=== PATIENT | male | born 2000 | race African-American/Black ===

== ENCOUNTER 2020-02-15 22:29 | Observation (INO) | payer OTHER, SELFPAY ==
--- NOTE | ~2020-02-15 | CT_ITS ---
EXAMINATION: CT abdomen pelvis w con EXAM DATE: 02/16/2020 00:10 INDICATION: Right quadrant, right lower quadrant pain, symptoms one day. Nausea. TECHNIQUE: Spiral CT of the abdomen and pelvis was performed following intravenous injection of 100 m L Omnipaque 350. Axial, coronal and sagittal images were reviewed. The dose-length product (DLP) fo r this examination was 174.20 mGy-cm. The exposure was tailored according to patient size (auto mA e xposure control), and iterative reconstruction (ASIR) was used as additional dose reduction technique . There is no prior study for comparison. FINDINGS: The liver, spleen, adrenal glands and pancreas are unremarkable. Gallbladder is unremarkab le. No biliary obstruction. Portal and splenic veins are patent. Kidneys enhance symmetrically. T here is no hydronephrosis. The prostate is unremarkable. The bladder is unremarkable. There is no retroperitoneal or pelvic lymphadenopathy. There is paucity of intra-abdominal fat decreasing sensitivity for the for acute intra-abdominal proc esses. The appendix is not identified.. The stomach and small bowel are unremarkable. There is expe cted amount of colonic stool. No free intraperitoneal gas. The heart is normal in size. There ar e no pericardial or pleural effusions. The lung bases are unremarkable. The bones are unremarkable. IMPRESSION: 1. No acute intra-abdominal findings. Reviewed, dictated and finalized at location A.
[2020-02-15 22:34] VITALS: BP 118/92; PULSE 57; RESP 18; TEMP 36.3; O2SAT 100
[2020-02-15 22:56] LABS: Basophils Absolute Auto 0.1 K/mm3 (0.0-0.1); Basophils Percent Auto 0.3 % (0.2-1.2); Eosinophils Percent Auto 0.1 % (0-4.4); Hemoglobin 15.1 g/dL (14.0-18.0); Immature Granulocyte Absolute 0.06 K/mm3 (0.00-0.031); Immature Granulocyte Percent A 0.4 % (0-0.5); Lymphocytes Absolute Auto 1.21 K/mm3 (0.9-3.2); Lymphocytes Percent Auto 7.6 % (18.3-44.2); Mean Corpuscular HGB Conc 34.3 g/dl (32-36); Mean Corpuscular Hemoglobin 28.2 pg (26-34); Mean Corpuscular Volume 82.2 fl (80-100); Mean Platelet Volume 11.6 fl (7.4-10.4); Monocytes Absolute Auto 0.6 K/mm3 (0.1-0.6); Neutrophils Absolute Auto 13.9 K/mm3 (1.3-6.7); Neutrophils Percent Auto 87.6 % (45.5-73.1); Platelet Count Result 203 k/mm3 (150-375); Red Blood Count 5.35 M/mm3 (4.6-6.20); Red Cell Distribution Width 12.4 % (11.5-14.5); White Blood Count 15.9 K/mm3 (4.5-10.0)
--- NOTE | 2020-02-15 22:58 | ED.ABDPAIN ---
HPI - Abdominal Pain General Chief Complaint: Abdominal Pain Stated Complaint: n/v, RUQ pain Time Seen by Provider: 02/15/20 22:44 Source: patient Mode of arrival: ambulatory Limitations: no limitations History of Present Illness HPI narrative: This patient is a 19 year old male who presents for evaluation of epigastric abdominal pain , nausea and vomiting. He states he noticed throbbing pain on Wednesday, and his pain resolved. His pain returned today and he has been having multiple episode of nausea and vomiting. His symptoms started 2 hours after eating at [address] and drinking alcohol. He states he only drank 1 glass of alcohol tonight. He denies fever but has chills. He denies diarrhea, cough or sob. MD elicited complaint: abdominal pain Related Data Home Medications Medication Instructions Recorded Confirmed No Home Medications 02/15/20 02/15/20 Allergies Allergy/AdvReac Type Severity Reaction Status Date / Time No Known Allergies Allergy Verified 02/15/20 22:37 Review of Systems Review of Systems: All systems reviewed & are unremarkable except as noted in HPI and below Constitutional: Constitutional: Reports chills and Denies fever(s) ENT: Denies sore throat Cardiovascular: Cardiovascular: Denies chest pain Respiratory: Respiratory: Denies cough and Denies dyspnea Gastrointestinal: Gastrointestinal: Reports abdominal pain, Denies diarrhea, Reports nausea and Reports vomiting PMFSH Past Medical History Medical History (Updated 02/16/20 @ 03:54 by Vanesa Land MD) Patient denies medical problems Surgical History Surgical History (Updated 02/15/20 @ 23:01 by Vanesa Land MD) No significant past surgical history Social History Social History (Updated 02/15/20 @ 23:01 by Vanesa Land MD) Smoking status: Never smoker Alcohol intake: current Alcohol use details: occasional alcohol use Substance use type: marijuana Exam Const: General: alert and ill appearing Nutritional Appearance: thin Orientation/consciousness: patient oriented x3 HENMT: Head: normocephalic and atraumatic Mouth: Yes lip normal Throat: posterior oropharynx normal, tonsils normal and uvula midline Eyes: Pupils: Equal, round and reactive pupils present EOM: EOMs intact bilaterally Neck: Neck: no lymphadenopathy Resp: Effort & Inspection: normal respiratory effort Auscultation: clear to auscultation bilaterally Cardio: Rate: regular rate Rhythm: regular rhythm Heart sounds: no murmurs GI: GI Palp: Yes Soft to palpation, Yes Tenderness to palpation present (GI) (epigastric), No Guarding due to palpation present (GI) and No Rigid due to palpation Skin: General skin exam: normal color Rashes: no rashes Neuro: General: patient oriented x3 and moves all extremities Course Reevaluation(s) Reevaluation #1: Patient is still having nausea and pain. On reexamination, Patient has diffuse tenderness. no guarding. He has some leukocytosis with this continued pain and nausea so will obs Date: 02/16/20 Time: 03:00 Consultations Consultation #1: I have discussed case with DR. Meier who accepts to medical floor for observation. Date: 02/16/20 Time: 03:30 Vital Signs Vital signs: Vital Signs Temperature 97.3 F L 02/15/20 22:34 Pulse Rate 57 L 02/15/20 22:34 Respiratory Rate 18 02/15/20 22:34 Blood Pressure 118/92 H 02/15/20 22:34 Pulse Oximetry 100 02/15/20 22:34 Temperature 97.3 F L 02/15/20 22:34 Pulse Rate 60 02/16/20 03:36 Respiratory Rate 18 02/16/20 03:36 Blood Pressure 103/74 02/16/20 03:36 Pulse Oximetry 96 02/16/20 03:36 MDM - Abdominal Pain Lab Data Attestation: I reviewed the patient's lab results. Result diagrams: 02/15/20 22:48 02/15/20 22:48 Labs: Lab Results 02/15/20 02/15/20 02/15/20 Range/Units 22:48 22:48 23:41 WBC 15.9 H (4.5-10.0) K/mm3 RBC 5.35 (4.6-
[2020-02-15 23:09] LABS: Alanine Aminotransferase 17 U/L (4-50); Alkaline Phosphatase 74 U/L (38-126); Anion Gap 17.3 mmol/L (7-16); Aspartate Amino Transferase 32 U/L (17-59); Bilirubin,Total 0.6 mg/dL (0.2-1.3); Blood Urea Nitrogen 10 mg/dL (9-20); Calcium 9.7 mg/dL (8.4-10.2); Carbon Dioxide 21 mmol/L (22-30); Chloride 103 mmol/L (98-107); Estimated CRCL calculation 78 ml/min; Estimated Glomerular Filt Rate > 60; Glucose 147 mg/dL (75-110); Lipase 109 U/L (23-300); Potassium 3.3 mmol/L (3.4-5.0); Sodium 138 mmol/L (137-145)
[2020-02-15] MEDS: PANTOPRAZOLE SODIUM IV 40 MG VIAL IV PUSH (23:28)
[2020-02-15] MEDS: ONDANSETRON INJ 4 MG/2 ML VIAL IV PUSH (23:28)
[2020-02-15] MEDS: LACTATED RINGERS 1,000 ML 999 ML IV CONT (23:38)
[2020-02-15 23:48] VITALS: BP 99/88; PULSE 64; RESP 16; O2SAT 99
[2020-02-16 00:04] LABS: Add Urine Microscopic? YES; Appearance Urine Clear (Clear); Bilirubin Urine Negative (Negative); Blood Urine Negative (Negative); Color Urine Yellow (Yellow); Glucose Urine UA Negative (Negative); Ketones Urine 1+ mg/dL (Negative); Leukocyte Esterase Ur Negative LEU/UL (Negative); Mucus Urine Rare /lpf; Nitrate Urine Negative (Negative); Protein Urine 2+ mg/dL (Negative); RBC Urine 0-2 /hpf (0-2); Specific Grav Ur 1.025 (1.001-1.035); Urobilinogen Urine Negative mg/dL (<2.0)
[2020-02-16 00:23] VITALS: BP 97/74; PULSE 70; RESP 16; O2SAT 100
[2020-02-16] MEDS: ONDANSETRON INJ 4 MG/2 ML VIAL IV PUSH ×2 (01:22→22:54)
[2020-02-16] MEDS: KETOROLAC 30 MG/ML VIAL (*BKC) IV PUSH (01:22)
[2020-02-16] MEDS: MORPHINE SULFATE 4 MG/ML INJ IV PUSH (02:07)
[2020-02-16 02:27] VITALS: BP 120/61; PULSE 69; RESP 18; O2SAT 100
[2020-02-16] MEDS: PROMETHAZINE HCL 25 MG/ML AMPUL 12.5 MG IV PUSH (03:25)
[2020-02-16] MEDS: SODIUM CHLORIDE 0.9% IV 50 ML (03:31)
[2020-02-16] MEDS: DICYCLOMINE HCL INJ 20 MG/2 ML VIAL IM (03:32)
[2020-02-16 03:36] VITALS: BP 103/74; PULSE 60; RESP 18; O2SAT 96
[2020-02-16 03:43] LABS: Amphetamine Screen Urine Negative (Negative); Barbiturate Screen Urine Negative (Negative); Benzodiazepines Screen Urine Negative (Negative); Cannabinoid Screen Urine Positive (Negative); Cocaine Screen Urine Negative (Negative); Methadone Screen Urine Negative (Negative); Opiate Screen Urine Negative (Negative); Phencyclidine Screen Urine Negative (Negative)
--- NOTE | 2020-02-16 04:06 | PC.NURSE ---
report to darci
--- NOTE | 2020-02-16 04:20 | ADMGEN ---
This patient, Arpan Baldwin Jr., was admitted to Medical Room 349-01. Patient/family oriented to hospital policies and general routines including ID bracelet, bed and alarms, visiting hours, pain management, procedures, bathroom and other care routines, personal items, smoking policy, room service/diet, and visiting hours. Valuables list has been completed. Information on how to activate the Rapid Response Team has been discussed. Patient/Family are encouraged to report perceived risks to care and to ask questions if they do not understand what they are told or what they should do.
[2020-02-16] MEDS: SODIUM CHLORIDE 0.9% IV 1,000 ML 125 ML IV CONT ×3 (04:27→22:54)
[2020-02-16 04:30] VITALS: BP 114/79; PULSE 59; RESP 16; TEMP 37.1; O2SAT 100; BMI 16.9
--- NOTE | 2020-02-16 06:11 | PC.NURSE ---
pulled out the 1G/100mls only gave patient 65mls to equal the order of 650mg. the 650 mg bag was returned to pharmacy
[2020-02-16] MEDS: FAMOTIDINE 20 MG/2 ML VIAL IV PUSH ×2 (09:12→20:39)
[2020-02-16 09:15] LABS: Basophils Percent Auto 0.1 % (0.2-1.2); Hematocrit 42.9 % (42.0-52.0); Hemoglobin 14.4 g/dL (14.0-18.0); Immature Granulocyte Absolute 0.03 K/mm3 (0.00-0.031); Immature Granulocyte Percent A 0.3 % (0-0.5); Immature Platelet Fraction Pct 13.5 % (0.9-11.2); Lymphocytes Absolute Auto 0.65 K/mm3 (0.9-3.2); Lymphocytes Percent Auto 5.9 % (18.3-44.2); Mean Corpuscular HGB Conc 33.6 g/dl (32-36); Mean Corpuscular Hemoglobin 28.5 pg (26-34); Monocytes Absolute Auto 0.3 K/mm3 (0.1-0.6); Neutrophils Percent Auto 90.7 % (45.5-73.1); Red Blood Count 5.05 M/mm3 (4.6-6.20); Red Cell Distribution Width 12.6 % (11.5-14.5)
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
[2020-02-16 09:27] LABS: Alanine Aminotransferase 15 U/L (4-50); Albumin Level 4.7 g/dL (3.5-5.1); Alkaline Phosphatase 58 U/L (38-126); Anion Gap 13.3 mmol/L (7-16); Aspartate Amino Transferase 35 U/L (17-59); Bilirubin,Total 0.6 mg/dL (0.2-1.3); Blood Urea Nitrogen 10 mg/dL (9-20); Calcium 9.1 mg/dL (8.4-10.2); Carbon Dioxide 22 mmol/L (22-30); Chloride 105 mmol/L (98-107); Estimated CRCL calculation 84 ml/min; Estimated Glomerular Filt Rate > 60; Glucose 108 mg/dL (75-110); Potassium 4.3 mmol/L (3.4-5.0); Sodium 136 mmol/L (137-145)
[2020-02-16 09:46] LABS: Platelet Clumps Present
[2020-02-16 14:00] VITALS: BP 117/66; PULSE 88; RESP 16; TEMP 36.8; O2SAT 100
[2020-02-16 16:46] VITALS: BMI 16.9
[2020-02-16 21:37] VITALS: BP 100/82; PULSE 59; RESP 16; TEMP 36.8; O2SAT 98
[2020-02-17 06:00] VITALS: BP 130/82; PULSE 64; RESP 16; TEMP 37.2; O2SAT 100
[2020-02-17 06:16] LABS: Basophils Percent Auto 0.1 % (0.2-1.2); Eosinophils Percent Auto 0.1 % (0-4.4); Hemoglobin 13.7 g/dL (14.0-18.0); Immature Granulocyte Absolute 0.06 K/mm3 (0.00-0.031); Immature Granulocyte Percent A 0.5 % (0-0.5); Lymphocytes Absolute Auto 1.32 K/mm3 (0.9-3.2); Lymphocytes Percent Auto 10.6 % (18.3-44.2); Mean Corpuscular HGB Conc 33.4 g/dl (32-36); Mean Corpuscular Hemoglobin 27.9 pg (26-34); Mean Corpuscular Volume 83.5 fl (80-100); Mean Platelet Volume 11.6 fl (7.4-10.4); Monocytes Absolute Auto 0.7 K/mm3 (0.1-0.6); Monocytes Percent Auto 5.5 % (2.6-8.5); Neutrophils Absolute Auto 10.3 K/mm3 (1.3-6.7); Neutrophils Percent Auto 83.2 % (45.5-73.1); Platelet Count Result 160 k/mm3 (150-375); Red Blood Count 4.91 M/mm3 (4.6-6.20); Red Cell Distribution Width 12.6 % (11.5-14.5); White Blood Count 12.4 K/mm3 (4.5-10.0)
[2020-02-17] MEDS: ONDANSETRON INJ 4 MG/2 ML VIAL IV PUSH ×2 (06:28→11:35)
[2020-02-17] MEDS: SODIUM CHLORIDE 0.9% IV 1,000 ML 125 ML IV CONT ×2 (06:30→15:07)
[2020-02-17 06:31] LABS: Alanine Aminotransferase 15 U/L (4-50); Albumin Level 4.1 g/dL (3.5-5.1); Alkaline Phosphatase 54 U/L (38-126); Anion Gap 12.1 mmol/L (7-16); Aspartate Amino Transferase 35 U/L (17-59); Bilirubin,Total 0.6 mg/dL (0.2-1.3); Blood Urea Nitrogen 10 mg/dL (9-20); Calcium 8.8 mg/dL (8.4-10.2); Carbon Dioxide 22 mmol/L (22-30); Chloride 106 mmol/L (98-107); Estimated CRCL calculation 94 ml/min; Estimated Glomerular Filt Rate > 60; Glucose 96 mg/dL (75-110); Potassium 4.1 mmol/L (3.4-5.0); Sodium 136 mmol/L (137-145)
[2020-02-17] MEDS: MORPHINE SULFATE 4 MG/ML INJ IV PUSH (07:14)
[2020-02-17 08:00] VITALS: PULSE 64; RESP 16; O2SAT 100
[2020-02-17] MEDS: FAMOTIDINE 20 MG/2 ML VIAL IV PUSH ×2 (08:44→20:33)
--- NOTE | 2020-02-17 10:54 | WPDGICN ---
Assessment and Plan Assessment and plan (1) Intractable nausea and vomiting: Code(s): R11.2 - Nausea with vomiting, unspecified Status: Acute Assessment and Plan: Patient has had several days of significant nausea vomiting. The etiology is unclear. May be related not having a bowel movement for several days. Possibly related to marijuana use. Plan is for IV fluid rehydration if symptoms persist an EGD on Wednesday will be arranged. We will follow with you. (2) Acute generalized abdominal pain: Code(s): R10.84 - Generalized abdominal pain Status: Acute (3) Constipation: Code(s): K59.00 - Constipation, unspecified Status: Acute Assessment and Plan: Patient reports no bowel movement for 3 days. Will plan to give the patient a suppository to assist with bowel movements given his significant nausea vomiting oral laxatives may not be tolerated. GI Consult Note Consult date/time: 02/17/20 10:54 HPI: Arpan Baldwin Jr. is a 19 year old male Seen in evaluation at the request Dr. Donaldson on the hospitalist service Patient in usual state of health over the last 3 days he notes nausea. He vomited yesterday. He has had rather diffuse abdominal pain and cramping. He knows during the last 3 days he has not had a bowel movement. Patient reports no recent travel. He apparently ate at a restaurant had an alcoholic beverage 2 nights ago. Maninder does not drink heavily. He does admit to daily marijuana use. He has not had prior episodes of nausea and vomiting. Family history is noncontributory. He takes no medications. Review of Systems Review of Systems: All systems reviewed & are unremarkable except as noted in HPI and below PMFSH Past Medical History Medical History Patient denies medical problems Surgical History Surgical History No significant past surgical history Family History Family History Father Diabetes mellitus Hypertension Mother No problems noted. 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 Smoking status: Never smoker Alcohol intake: current Drinks per week: 2 Alcohol use details: occasional alcohol use Substance use: current Substance use type: marijuana Last use: 02/15/20 Gender identity (if verbalized by the patient): Male Sexual Orientation (if Verbalized by the Patient): Straight or Heterosexual Spiritual care concerns: No Meds Home Medications and Allergies Home Medications Medication Instructions Recorded Confirmed Type No Home Medications 02/15/20 02/15/20 History Allergies Allergy/AdvReac Type Severity Reaction Status Date / Time No Known Allergies Allergy Verified 02/15/20 22:37 Vital Signs Vital Signs - 24 hr 02/16/20 14:00 02/16/20 21:37 02/17/20 06:00 Temperature 98.2 F 98.2 F 98.9 F Pulse Rate 88 59 L 64 Respiratory Rate 16 16 16 Blood Pressure 117/66 100/82 130/82 Pulse Oximetry 100 98 100 02/17/20 08:00 Temperature Pulse Rate 64 Respiratory Rate 16 Blood Pressure Pulse Oximetry 100 Exam Narrative: Exam Narrative: Physical exam reveals the patient to be alert. Vital signs are stable. HEENT exam is unremarkable he is anicteric. Lungs are clear to auscultation and percussion. Heart is without murmur or extra sounds. Abdominal exam is flat scaphoid bowel sounds are present soft nontender with no organomegaly. Digital rectal exam is deferred at this time. Results Labs CBC & Chem 7: 02/17/20 06:05 02/17/20 06:05 Labs: Short CBC 02/17/20 Range/Units 06:05 WBC 12.4 H (4.5-10.0) K/mm3 Hgb 13.7 L (14.0-18.0) g/dL Hct 41.0 L (42.0-52.0) %
[2020-02-17] MEDS: BISACODYL 10 MG SUPPOSITORY RECTAL (11:24)
[2020-02-17 14:00] VITALS: BP 118/60; PULSE 51; RESP 18; TEMP 37.3; O2SAT 100
--- NOTE | 2020-02-17 14:21 | PM.IMPN ---
Progress Note: A&P Assessment and Plan (1) Acute generalized abdominal pain: Code(s): R10.84 - Generalized abdominal pain Status: Acute Assessment and Plan: no obvious localizing etiology with normal LFTs, lipase, and CT of the abdomen. Most likely a simple gastritis. Has been placed on proton pump inhibitors which will continue and hydrated. Will repeat his laboratory work remains normal with falling WBC. GI has seen and if symptoms persist will proceed to EGD (2) Leukocytosis: Code(s): D72.829 - Elevated white blood cell count, unspecified Status: Acute Assessment and Plan: suspect stress related or secondary to gastritis. . No other obvious source of infection and continue to monitor Subjective Date/time seen: 02/17/20 14:21 Interval history: date visit 02/16. 19-year-old present healthy male admitted with nausea vomiting abdominal pain. Pain is subsided but still feels nauseated. Really unable to eat. No bowel movement. LFTs all normal as was CT scan and WBC falling Exam Narrative: Exam Narrative: blood pressure 126/80 pulse is 90 and regular afebrile pupil equal reactive to light sclera anicteric mouth normal mucosa neck supple lungs clear CV regular rate rhythm no murmurs or gallops abdomen is soft bowel sounds present to slightly decrease diffuse mild tenderness but no rebound or guarding extremities without edema dorsalis pedis posterior tibial 2+ neuro alert no focal deficits cranial nerves 2-12 are intact psych pleasant cooperative Objective Data Vital Signs Vital Signs: Vital Signs - 24 hr 02/16/20 21:37 02/17/20 06:00 02/17/20 08:00 Temperature 36.8 C 37.2 C Pulse Rate 59 L 64 64 Respiratory Rate 16 16 16 Blood Pressure 100/82 130/82 Pulse Oximetry 98 100 100 Intake/Output Intake/Output: Intake & Output 02/14/20 02/15/20 02/16/20 02/17/20 23:59 23:59 23:59 23:59 Intake Total 3850 1150 Output Total 200 Balance 3850 950 Meds/Results Medications: Active Medications Generic Name Dose Route Start Last Admin Trade Name Freq PRN Reason Stop Dose Admin Famotidine 20 mg 02/16/20 09:00 02/17/20 08:44 Pepcid Iv IV PUSH 20 mg Q12HR ANASTACIA Administration Sodium Chloride 1,000 mls @ 125 mls/hr 02/16/20 03:40 02/17/20 06:30 Normal Saline Iv IV CONT 125 mls/hr .Q8H ANASTACIA Administration Ondansetron HCl 4 mg 02/16/20 03:38 02/17/20 11:35 Zofran Inj IV PUSH 4 mg Q4H PRN Administration Nausea Radiology Results: ITS Impressions Abdomen/Pelvis CT 02/16/20 08:11 IMPRESSION: 1. No acute intra-abdominal findings. Labs Labs: Laboratory Results - last 24 hr 02/17/20 02/17/20 06:05 06:05 WBC 12.4 H RBC 4.91 Hgb 13.7 L Hct 41.0 L MCV 83.5 MCH 27.9 MCHC 33.4 RDW 12.6 Plt Count 160 MPV 11.6 H Immature Gran % (Auto) 0.5 Neut % (Auto) 83.2 H Lymph % (Auto) 10.6 L [place] % (Auto) 5.5 Eos % (Auto) 0.1 Baso % (Auto) 0.1 L Lymph # (Auto) 1.32 Barton # (Auto) 0.7 H Eos # (Auto) 0.0 Baso # (Auto) 0.0 Abs Immat Gran (auto) 0.06 H Absolute Neuts (auto) 10.3 H Absolute Nucleated RBC 0.0 Nucleated RBC % 0.0 Sodium 136 L Potassium 4.1 Chloride 106 Carbon Dioxide 22 Anion Gap 12.1 BUN 10 Creatinine 0.80 Estim Creat Clear Calc 94 Estimated GFR > 60 Glucose 96 Calcium 8.8 Total Bilirubin 0.6 AST 35 ALT 15 Alkaline Phosphatase 54 Total Protein 7.0 Albumin 4.1
[2020-02-17 20:27] VITALS: BP 138/79; PULSE 51; RESP 16; TEMP 37.1; O2SAT 99
[2020-02-17] MEDS: KETOROLAC 15 MG/ML VIAL (*BKC) IV PUSH (21:20)
[2020-02-18] MEDS: SODIUM CHLORIDE 0.9% IV 1,000 ML 125 ML IV CONT ×2 (00:03→08:27)
[2020-02-18] MEDS: ONDANSETRON INJ 4 MG/2 ML VIAL IV PUSH (04:40)
[2020-02-18 05:40] LABS: Anion Gap 14.1 mmol/L (7-16); Blood Urea Nitrogen 14 mg/dL (9-20); Calcium 8.6 mg/dL (8.4-10.2); Carbon Dioxide 17 mmol/L (22-30); Chloride 107 mmol/L (98-107); Estimated CRCL calculation 84 ml/min; Estimated Glomerular Filt Rate > 60; Glucose 78 mg/dL (75-110); Potassium 4.1 mmol/L (3.4-5.0); Sodium 134 mmol/L (137-145)
[2020-02-18 06:00] VITALS: BP 142/85; PULSE 50; RESP 16; TEMP 36.7; O2SAT 100
[2020-02-18 07:41] LABS: Basophils Percent Auto 0.2 % (0.2-1.2); Eosinophils Percent Auto 0.2 % (0-4.4); Hematocrit 46.3 % (42.0-52.0); Hemoglobin 15.8 g/dL (14.0-18.0); Immature Granulocyte Absolute 0.03 K/mm3 (0.00-0.031); Immature Granulocyte Percent A 0.3 % (0-0.5); Lymphocytes Percent Auto 16.5 % (18.3-44.2); Mean Corpuscular HGB Conc 34.1 g/dl (32-36); Mean Corpuscular Hemoglobin 28.1 pg (26-34); Mean Corpuscular Volume 82.4 fl (80-100); Mean Platelet Volume 11.4 fl (7.4-10.4); Monocytes Absolute Auto 0.5 K/mm3 (0.1-0.6); Monocytes Percent Auto 5.7 % (2.6-8.5); Neutrophils Percent Auto 77.1 % (45.5-73.1); Platelet Count Result 158 k/mm3 (150-375); Red Blood Count 5.62 M/mm3 (4.6-6.20); Red Cell Distribution Width 12.3 % (11.5-14.5); White Blood Count 9.1 K/mm3 (4.5-10.0)
[2020-02-18] MEDS: FAMOTIDINE 20 MG/2 ML VIAL IV PUSH ×2 (08:27→19:59)
--- NOTE | 2020-02-18 08:36 | P.PNGI_ITS ---
Progress Note: A&P Additional Plan Patient alert this morning. He reports continued emesis despite being NPO. He also states he is hungry. He reports sensation of difficulty swallowing even though he has been NPO. Physical exam reveals patient to be extremely thin. Lungs are clear. Heart without murmur. Abdomen is soft and nontender. No organomegaly. No distention. Impression 1. Protracted nausea and vomiting. Plan is to continue PPI intravenously. An EGD will be planned in the morning. 2. New complaint of difficulty swallowing. Likely secondary to anxiety. Will assess this at the time of endoscopy. Subjective Date/time seen: 02/18/20 08:36 Objective Data Vital Signs Vital Signs: Vital Signs - 24 hr 02/17/20 14:00 02/17/20 20:27 02/18/20 06:00 Temperature 99.2 F 98.8 F 98.0 F Pulse Rate 51 L 51 L 50 L Respiratory Rate 18 16 16 Blood Pressure 118/60 138/79 142/85 H Pulse Oximetry 100 99 100 Intake/Output Intake/Output: Intake & Output 02/15/20 02/16/20 02/17/20 02/18/20 23:59 23:59 23:59 23:59 Intake Total 3850 2454 1696 Output Total 350 975 Balance 3850 2104 721 Meds/Results Medications: Active Medications Generic Name Dose Route Start Last Admin Trade Name Freq PRN Reason Stop Dose Admin Famotidine 20 mg 02/16/20 09:00 02/18/20 08:27 Pepcid Iv IV PUSH 20 mg Q12HR ANASTACIA Administration Sodium Chloride 1,000 mls @ 125 mls/hr 02/16/20 03:40 02/18/20 08:27 Normal Saline Iv IV CONT 125 mls/hr .Q8H ANASTACIA Administration Ondansetron HCl 4 mg 02/16/20 03:38 02/18/20 04:40 Zofran Inj IV PUSH 4 mg Q4H PRN Administration Nausea Radiology Results: ITS Impressions Abdomen/Pelvis CT 02/16/20 08:11 IMPRESSION: 1. No acute intra-abdominal findings. Labs Labs: Laboratory Results - last 24 hr 02/18/20 02/18/20 05:06 07:23 WBC 9.1 RBC 5.62 Hgb 15.8 Hct 46.3 MCV 82.4 MCH 28.1 MCHC 34.1 RDW 12.3 Plt Count 158 MPV 11.4 H Immature Gran % (Auto) 0.3 Neut % (Auto) 77.1 H Lymph % (Auto) 16.5 L [place] % (Auto) 5.7 Eos % (Auto) 0.2 Baso % (Auto) 0.2 Lymph # (Auto) 1.50 [place] # (Auto) 0.5 Eos # (Auto) 0.0 Baso # (Auto) 0.0 Abs Immat Gran (auto) 0.03 Absolute Neuts (auto) 7.0 H Absolute Nucleated RBC 0.0 Nucleated RBC % 0.0 Sodium 134 L Potassium 4.1 Chloride 107 Carbon Dioxide 17 L Anion Gap 14.1 BUN 14 Creatinine 0.90 Estim Creat Clear Calc 84 Estimated GFR > 60 Glucose 78 Calcium 8.6
[2020-02-18 14:00] VITALS: BP 128/69; PULSE 53; RESP 16; TEMP 37.6; O2SAT 100
--- NOTE | 2020-02-18 14:46 | PC.NURSE ---
Ate 50% of lunch. Tolerated it with no problems noted.
--- NOTE | 2020-02-18 15:50 | PM.IMPN ---
Progress Note: A&P Assessment and Plan (1) Acute generalized abdominal pain: Code(s): R10.84 - Generalized abdominal pain Status: Acute Assessment and Plan: no obvious localizing etiology with normal LFTs, lipase, and CT of the abdomen. Most likely a simple gastritis. Has been placed on proton pump inhibitors which will continue and hydrated. WBC normal now. GI has seen and with symptoms slow to resolve will do EGD am 02/18 (2) Leukocytosis: Code(s): D72.829 - Elevated white blood cell count, unspecified Status: Acute Assessment and Plan: suspect stress related or secondary to gastritis. . No other obvious source of infection and normal today Subjective Date/time seen: 02/18/20 15:50 Interval history: date visit 02/17. 19-year-old present healthy male admitted with nausea vomiting abdominal pain. Pain is subsided but still feels slightly nauseated. Had bm and ready to try full liquid diet. LFTs all normal as was CT scan and WBC now normal Exam Narrative: Exam Narrative: blood pressure 128/70 pulse is 60 and regular afebrile pupil equal reactive to light sclera anicteric mouth normal mucosa neck supple lungs clear CV regular rate rhythm no murmurs or gallops abdomen is soft bowel sounds normoactive today extremities without edema dorsalis pedis posterior tibial 2+ neuro alert no focal deficits cranial nerves 2-12 are intact psych pleasant cooperative Objective Data Vital Signs Vital Signs: Vital Signs - 24 hr 02/17/20 20:27 02/18/20 06:00 02/18/20 14:00 Temperature 37.1 C 36.7 C 37.6 C Pulse Rate 51 L 50 L 53 L Respiratory Rate 16 16 16 Blood Pressure 138/79 142/85 H 128/69 Pulse Oximetry 99 100 100 Intake/Output Intake/Output: Intake & Output 02/15/20 02/16/20 02/17/20 02/18/20 23:59 23:59 23:59 23:59 Intake Total 3850 2454 1936 Output Total 350 975 Balance 3850 2104 961 Meds/Results Medications: Active Medications Generic Name Dose Route Start Last Admin Trade Name Freq PRN Reason Stop Dose Admin Famotidine 20 mg 02/16/20 09:00 02/18/20 08:27 Pepcid Iv IV PUSH 20 mg Q12HR ANASTACIA Administration Sodium Chloride 1,000 mls @ 100 mls/hr 02/16/20 03:40 02/18/20 08:27 Normal Saline Iv IV CONT 125 mls/hr .Q10H ANASTACIA Administration Ondansetron HCl 4 mg 02/16/20 03:38 02/18/20 04:40 Zofran Inj IV PUSH 4 mg Q4H PRN Administration Nausea Radiology Results: ITS Impressions Abdomen/Pelvis CT 02/16/20 08:11 IMPRESSION: 1. No acute intra-abdominal findings. Labs Labs: Laboratory Results - last 24 hr 02/18/20 02/18/20 05:06 07:23 WBC 9.1 RBC 5.62 Hgb 15.8 Hct 46.3 MCV 82.4 MCH 28.1 MCHC 34.1 RDW 12.3 Plt Count 158 MPV 11.4 H Immature Gran % (Auto) 0.3 Neut % (Auto) 77.1 H Lymph % (Auto) 16.5 L [place] % (Auto) 5.7 Eos % (Auto) 0.2 Baso % (Auto) 0.2 Lymph # (Auto) 1.50 [place] # (Auto) 0.5 Eos # (Auto) 0.0 Baso # (Auto) 0.0 Abs Immat Gran (auto) 0.03 Absolute Neuts (auto) 7.0 H Absolute Nucleated RBC 0.0 Nucleated RBC % 0.0 Sodium 134 L Potassium 4.1 Chloride 107 Carbon Dioxide 17 L Anion Gap 14.1 BUN 14 Creatinine 0.90 Estim Creat Clear Calc 84 Estimated GFR > 60 Glucose 78 Calcium 8.6
[2020-02-18] MEDS: SODIUM CHLORIDE 0.9% IV 1,000 ML 75 ML IV CONT (16:07)
[2020-02-18 21:59] VITALS: BP 127/60; PULSE 99; RESP 18; TEMP 37.2; O2SAT 100
[2020-02-19] MEDS: SODIUM CHLORIDE 0.9% IV 1,000 ML 75 ML IV CONT (05:07)
[2020-02-19 05:12] VITALS: BP 120/82; PULSE 50; RESP 14; TEMP 36.9; O2SAT 100
[2020-02-19 06:06] LABS: Blood Urea Nitrogen 14 mg/dL (9-20); Calcium 8.8 mg/dL (8.4-10.2); Carbon Dioxide 22 mmol/L (22-30); Chloride 106 mmol/L (98-107); Estimated CRCL calculation 84 ml/min; Estimated Glomerular Filt Rate > 60; Glucose 69 mg/dL (75-110); Sodium 135 mmol/L (137-145)
--- NOTE | 2020-02-19 07:33 | WPDANESEPPF ---
Anes - Initial Pre Proc Eval Procedure: Operation Date: 02/19/20 08:00 Proposed Procedures p Esophagogastroduodenoscopy - Marco Mann MD Date/Time: 02/19/20 07:33 Surgeon: Evert Hartley MD Pre Op Diagnosis: intractable abdominal pain, nausea and vomiting Patient Data Age: 19 Gender: M Height: 1.75 m Weight: 52.1 kg Last Vital Signs Temp 36.9 C 02/19/20 05:12 Pulse 50 L 02/19/20 05:12 Resp 14 02/19/20 05:12 BP 120/82 02/19/20 05:12 Pulse Ox 100 02/19/20 05:12 Allergies Allergy/AdvReac Type Severity Reaction Status Date / Time No Known Allergies Allergy Verified 02/15/20 22:37 Home Medications Medication Instructions Recorded Confirmed Type No Home Medications 02/15/20 02/15/20 History Laboratory Tests 02/18/20 02/19/20 07:23 05:19 WBC 9.1 K/mm3 K/mm3 (4.5-10.0) RBC 5.62 M/mm3 M/mm3 (4.6-6.20) Hgb 15.8 g/dL g/dL (14.0-18.0) Hct 46.3 % % (42.0-52.0) MCV 82.4 fl fl (80-100) MCH 28.1 pg pg (26-34) MCHC 34.1 g/dl g/dl (32-36) RDW 12.3 % % (11.5-14.5) Plt Count 158 k/mm3 k/mm3 (150-375) MPV 11.4 fl H fl (7.4-10.4) Immature Gran % (Auto) 0.3 % % (0-0.5) Neut % (Auto) 77.1 % H % (45.5-73.1) Lymph % (Auto) 16.5 % L % (18.3-44.2) Eddy % (Auto) 5.7 % % (2.6-8.5) Eos % (Auto) 0.2 % % (0-4.4) Baso % (Auto) 0.2 % % (0.2-1.2) Lymph # (Auto) 1.50 K/mm3 K/mm3 (0.9-3.2) Eddy # (Auto) 0.5 K/mm3 K/mm3 (0.1-0.6) Eos # (Auto) 0.0 K/mm3 K/mm3 (0-0.3) Baso # (Auto) 0.0 K/mm3 K/mm3 (0.0-0.1) Abs Immat Gran (auto) 0.03 K/mm3 K/mm3 (0.00-0.031) Absolute Neuts (auto) 7.0 K/mm3 H K/mm3 (1.3-6.7) Absolute Nucleated RBC 0.0 K/mm3 K/mm3 (0.0-0.012) Nucleated RBC % 0.0 % % (0.0-0.2) Sodium 135 mmol/L L mmol/L (137-145) Potassium 4.0 mmol/L mmol/L (3.4-5.0) Chloride 106 mmol/L mmol/L (98-107) Carbon Dioxide 22 mmol/L mmol/L (22-30) Anion Gap 11.0 mmol/L mmol/L (7-16) BUN 14 mg/dL mg/dL (9-20) Creatinine 0.90 mg/dL mg/dL (0.7-1.3) Estim Creat Clear Calc 84 ml/min ml/min Estimated GFR > 60 (59 - ) Glucose 69 mg/dL L mg/dL (75-110) Calcium 8.8 mg/dL mg/dL (8.4-10.2) Patient hx anesthesia problems: none Family hx anesthesia problems: none [facility] Past Medical History Medical History Patient denies medical problems Surgical History Surgical History No significant past surgical history Family History Family History Father Diabetes mellitus Hypertension Mother No problems noted. 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 Smoking status: Never smoker Alcohol intake: current Drinks per week: 2 Alcohol use details: occasional alcohol use Substance use: current Substance use type: marijuana Last use: 02/15/20 Gender identity (if verbalized by the patient): Male Sexual Orientation (if Verbalized by the Patient): Straight or Heterosexual Spiritual care concerns: No Anes - Eval Final PreProcedure Day of Procedure 02/19/20 07:33 Patient weight: thin Heart: regular rate and rhythm Lungs: clear to auscultation and normal air movement Airway: Mallampati scale class II Neurological: alert and oriented Last oral intake: >/= 8 hours ASA classification: II Emergent: no Anesthetic plan: proceed Anesthesia type and monitoring: general GIVS and standard monitoring Informed Consent: The patient's anesthetic plan and its attendant risks and benefits were discussed with the patient/family/POA. Q
[2020-02-19] MEDS: LACTATED RINGERS 1,000 ML 150 ML IV CONT (07:38)
[2020-02-19 07:39] VITALS: BP 138/73; PULSE 48; RESP 16; TEMP 36.8; O2SAT 100
[2020-02-19 07:56] VITALS: BP 121/85; PULSE 46; RESP 23; O2SAT 100
[2020-02-19 08:06] VITALS: BP 130/84; PULSE 49; RESP 15; O2SAT 100
[2020-02-19 08:16] VITALS: BP 131/88; PULSE 49; RESP 20; O2SAT 100
[2020-02-19] MEDS: FAMOTIDINE 20 MG TABLET PO (08:56)
[2020-02-19 08:58] LABS: Glucose Point of Care 59 (65-105)
--- NOTE | 2020-02-19 09:00 | PC.NURSE ---
Pt NPO overnight, sugar low this morning after EGD, provided 2 oranged juices and pt ordering breakfast.
[2020-02-19 09:30] LABS: Glucose Point of Care 135 (65-105)
[2020-02-19 14:00] VITALS: BP 122/56; PULSE 68; RESP 12; TEMP 36.8; O2SAT 99
--- NOTE | 2020-02-24 08:40 | PM.DS ---
DS: Admitting Diagnosis Admitting Diagnosis Admitting Diagnosis: Generalized abdominal pain DS: Discharge Diagnosis Discharge Diagnosis (1) Acute generalized abdominal pain: Code(s): R10.84 - Generalized abdominal pain Status: Acute Assessment and Plan: no obvious localizing etiology with normal LFTs, lipase, and CT of the abdomen. Most likely a simple gastritis. Had been placed on proton pump inhibitors whic and hydrated. WBC normal now. GI has seen and with symptoms slow to resolve had EGD 02/18 which was normal. Tolerated normal diet and cristopher to d/c after EGD (2) Leukocytosis: Code(s): D72.829 - Elevated white blood cell count, unspecified Status: Acute Assessment and Plan: suspect stress related or secondary to gastritis. . No other obvious source of infection and normal 02/17 DS: Summary Hospital Course Hospital Course: 19-year-old male previously healthy admitted with persistent abdominal pain leukocytosis. CT abdomen unremarkable as were LFTs and lipase. responded to bowel rest and and hydration. Was seen by GI and EGD performed 02/18 was normal. tolerated regular diet and discharged the same day on Pepcid 20 Q 12. Follow-up with primary care and/or GI if symptoms recur Time Spent with Patient Time attestation: Total time spent providing and/or coordinating discharge services:35 minutes Exam Narrative: Exam Narrative: condition on discharge blood pressure 128/70 pulse 60 afebrile lungs clear CV regular rate rhythm abdomen soft bowel sounds are more active nontender extremities without edema up in about no abdominal pain nausea vomiting and taking a normal diet Discharge Plan Discharge Attending physician on discharge: Danny Donaldson Consulting providers: Ciaran Thomas ; Marco Mann ; Yuri Reyes Discharging Clinician: Danny Donaldson Patient Disposition: Home, Self-Care Activity: as tolerated Diet: as tolerated and regular Patient Instructions: Antibiotic Form, Acute Nausea and Vomiting (DC), Acute Abdominal Pain (DC) Stand Alone Forms: General Discharge Information Follow-up/Referrals: Ciaran Thomas MD [Physician] - 3 Weeks Discharge Medications: New famotidine 20 mg Tablet 20 mg PO Q12HR Qty: 60 RF: 0 No Action No Home Medications RF: 0 Date of admission: 02/16/20 03:36 Primary Care Provider: PHYSICIAN,TIGHT COOPER Admitting Provider: Evert Hartley Discharge Date/Time: 02/19/20 14:37 Attending physician on admission: Danny Donaldson Condition: Stable
== END 2020-02-19 14:37 | disposition home or self-care (01) ==
LOC: ANHED 02-16 03:45 → ANH3MED 02-16 03:49
PROVIDERS: Internal Medicine Gastroenterology; Admitting Provider Family Medicine; Emergency Provider General Practice; Visit Provider Internal Medicine
PROC: 0DJ08ZZ Inspection of Upper Intestinal Tract, Via Natural or Artificial Opening Endoscopic (ICD-10-PCS; CPT 43235; principal; 2020-02-19 08:00)
DX: R10.84 Generalized abdominal pain (principal); R11.2 Nausea with vomiting, unspecified; K59.00 Constipation, unspecified
CPT/HCPCS: 43239; 36415; 74177; 80048; 80053; 80307; 81001; 83690; 85025; 85055; 87081; 96360; 96361; 96365; 96372; 96374; 96375; 96376; 99285; A9270; C9113; G0378; J0131; J0500; J1885; J2270; J2405; J2550; J2704; J7030; J7120; Q9967

== ENCOUNTER 2020-04-09 09:22 | Emergency (ER) | payer OTHER, SELFPAY ==
[2020-04-09 09:28] VITALS: BP 113/75; PULSE 59; RESP 16; TEMP 36.7; O2SAT 100
--- NOTE | 2020-04-09 09:46 | ED.SKABFB ---
HPI - Skin/Abscess/Foreign Bdy General Chief complaint: Skin/Abscess/Foreign Body Stated complaint: LUMP ON NECK Source: patient and RN notes reviewed Limitations: no limitations History of Present Illness HPI narrative: The patient,occ smoker/rare drinker, presents with skin eruption. Patient states he has about 1/2-week history of noticeable, single, right posterior cervical adenopathy. This is associated with ongoing prior history of eczema, and occasional follicular/pseudo-follicular eruption along his hairline. No fever, hoarseness, other lymph nodes, sore throat, weight loss; his eczema at elbow creases and posterior neck seems stable, he says. He is currently on no meds; discussed plan to provide antibiotics for lymph node and folliculitis with topical steroids for his eczema. Patient advised repeatedly and strongly to return if lymph node does not improve in the next half month. Related Data Allergies Allergy/AdvReac Type Severity Reaction Status Date / Time No Known Allergies Allergy Verified 02/19/20 07:38 Review of Systems Review of Systems: Narrative: General/Constitutional: No weight loss,fever Eyes: N0: Redness,discharge Ears/Nose/Throat: No: Epistaxis,ear discharge Respiratory: Denies: Hemoptysis Gastrointestinal: No Vomiting, Bleeding-rectal Skin: REPORTS lumps, eruption Neurologic: No Focal Weakness,Sz Hematologic: Denies: Petechiae/Purpura Psychiatric: No: Suicida ideationl All Other Systems: Reviewed and Negative [facility] Social History Social History Social History: 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 There is no relevant family history pertinent to the presenting complaint Exam Narrative: Exam Narrative: Appearance : Normocephalic, Conjunctiva clear Ear: External ear normal Nose: Normal nose, Nare clear Mouth/Throat: Normal appearing Neck Exam: Supple, single, nontender, small, mobile, three-quarter cm right posterior cervical lymph node Respiratory: Airway patent, No respiratory distress Musculoskeletal: bilateral small eczematous patches of elbow creases, neck; Moves all extremities, Non tender Skin: Warm, Dry ; scattered, healing pseudo-follicular/follicular eruption on posterior neck Neurological: A&O x3 Normal affect Course Vital Signs Vital signs: Vital Signs Temperature 98.1 F 04/09/20 09:28 Pulse Rate 59 L 04/09/20 09:28 Respiratory Rate 16 04/09/20 09:28 Blood Pressure 113/75 04/09/20 09:28 Pulse Oximetry 100 04/09/20 09:28 Temperature 98.1 F 04/09/20 09:28 Pulse Rate 59 L 04/09/20 09:28 Respiratory Rate 16 04/09/20 09:28 Blood Pressure 113/75 04/09/20 09:28 Pulse Oximetry 100 04/09/20 09:28 Discharge Plan Discharge Clinical Impression: Lymphadenopathy of right cervical region, History of eczema, Hx of folliculitis Patient Disposition: Home, Self-Care Condition: Stable Instructions: Antibiotic Form, Lymphadenopathy (ED) Additional Instructions: Return if lymph node does not improve Prescriptions: New clindamycin HCl 300 mg capsule 300 mg PO TID Qty: 15 RF: 0 triamcinolone acetonide 0.1 % lotion 1 applic TOPICAL DAILY Qty: 60 RF: 2 Interventions: Discharge Disposition Last Done: 04/09/20 09:58 Follow-up/Referrals: UNKNOWN,DOCTOR [Primary Care Provider] - Discharge Date/Time: 04/09/20 09:59
== END 2020-04-09 09:59 | disposition home or self-care (01) ==
PROVIDERS: Emergency Provider Emergency Medicine
DX: R59.1 Generalized enlarged lymph nodes (principal); L73.9 Follicular disorder, unspecified; Z87.2 Personal history of diseases of the skin and subcutaneous tissue
CPT/HCPCS: 99213; G0463

== ENCOUNTER 2021-10-09 16:28 | Emergency (ER) | payer OTHER, SELFPAY ==
[2021-10-09 16:45] VITALS: BP 91/61; PULSE 76; RESP 12; TEMP 37; O2SAT 100
--- NOTE | 2021-10-09 16:57 | ED.MALEGU ---
HPI - Male Genitourinary General Chief complaint: Urogenital-Male Stated complaint: Urinary pain Time Seen by Provider: 10/09/21 16:58 Source: patient Mode of arrival: ambulatory Limitations: no limitations History of Present Illness HPI Narrative: 20-year-old male presents with concern of dysuria and penile urinary discharge for 2 days. Reports symptoms started with mild scrotal swelling which resolved after the first day and he now has dysuria and white discharge. He denies any current scrotal pain, swelling, redness. Denies abdominal pain or back pain. Denies flank pain. Denies fever, body aches, chills, sweats. Denies nausea, vomiting, diarrhea Complaint: dysuria Related Data Allergies Allergy/AdvReac Type Severity Reaction Status Date / Time No Known Allergies Allergy Verified 02/19/20 07:38 Review of Systems Review of Systems: CONSTITUTIONAL: Denies malaise, chills, sweats, or fever. GASTROINTESTINAL: Denies abdominal pain, nausea, vomiting, diarrhea, bloody, or mucous stools. GENITOURINARY: Denies dysuria, white penile discharge SKIN: Denies lesions, rash or itching. MUSCULOSKELETAL: Denies back pain or myalgia. All systems reviewed & are unremarkable except as noted in HPI and below PMFSH Past Medical History Medical History (Updated 10/09/21 @ 17:07 by Kathrine Thomas NP) Patient denies medical problems Surgical History Surgical History No significant past surgical history Family History Family History Father Diabetes mellitus Hypertension Mother No problems noted. 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 There is no relevant family history pertinent to the presenting complaint Exam Narrative: GENERAL: Well-appearing, well-nourished, and in no acute distress. HEAD: Normocephalic. EYES: PERRLA, conjunctivae clear. NECK: Supple. No lymphadenopathy CHEST: Clear to auscultation. No respiratory distress. HEART: Regular rate and rhythm. ABDOMEN: Soft, nontender upon palpation, nondistended, normal active bowel sounds, no palpable or pulsatile masses, no guarding. No CVA tenderness SKIN: Warm, dry, no rash. NEURO: Alert and oriented x3. PSYCH: Normal mood and affect Course Course Emergency Course: Patient is aware of diagnosis, understands and agrees to treatment plan. Anticipatory guidance given. Patient agrees to follow-up as directed and is aware of reasons to seek care at the emergency department. Portions of this record may have been created with voice recognition software Level of Care: Express Care Visit Vital Signs Vital signs: Vital Signs Temperature 98.6 F 10/09/21 16:45 Pulse Rate 76 10/09/21 16:45 Respiratory Rate 12 10/09/21 16:45 Blood Pressure 91/61 L 10/09/21 16:45 Pulse Oximetry 100 10/09/21 16:45 Temperature 98.6 F 10/09/21 16:45 Pulse Rate 76 10/09/21 16:45 Respiratory Rate 12 10/09/21 16:45 Blood Pressure 91/61 L 10/09/21 16:45 Pulse Oximetry 100 10/09/21 16:45 Reviewed. MDM - Male Genitourinary MDM Narrative Medical decision making narrative: Exam findings show no acute concerns or changes; patient is non-toxic appearing and is in no distress. Patient is appropriate for outpatient treatment and follow-up. Differential Diagnosis Differen
[2021-10-09] MEDS: cefTRIAXone 500 MG, LIDOCAINE HCL 1% LOCAL INJ 1 ML IM (17:24)
== END 2021-10-09 17:58 | disposition home or self-care (01) ==
PROVIDERS: Emergency Provider Nurse Practitioner
DX: R30.0 Dysuria (principal)
CPT/HCPCS: 87491; 87591; 87661; 96372; 99213; G0463; J0696